=== PATIENT | female | born 1995 | race Caucasian/White ===

== ENCOUNTER 2024-08-03 15:53 | Emergency (ER) | payer SELFPAY ==
[2024-08-03 16:05] VITALS: BP 139/85; PULSE 120; RESP 16; TEMP 36.8; O2SAT 100
[2024-08-03 19:16] VITALS: BP 123/77; PULSE 94; RESP 18; TEMP 36.5; O2SAT 98
--- NOTE | 2024-08-03 19:56 | ED.EXTPRO ---
HPI - Extremity Problem General Chief complaint: Extremity Problem,Nontraumatic Stated complaint: LLE infection Time Seen by Provider: 08/03/24 19:15 History of Present Illness HPI Narrative: 28-year-old female presenting with concerns for infection of her leg. States that for the last couple of days she has had redness on the anterior aspect of her left he that has been increasingly painful and warm. Denies any drainage. Has been using Tylenol and ibuprofen with moderate relief. No fevers or chills. No chest pain or shortness of breath. Related Data Allergies Allergy/AdvReac Type Severity Reaction Status Date / Time No Known Allergies Allergy Verified 08/03/24 15:57 Review of Systems Review of Systems: All systems reviewed & are unremarkable except as noted in HPI and below Exam Narrative: GENERAL: Nontoxic, no acute distress, pleasant cooperative HEAD: Normocephalic, atraumatic. EYES: PERRLA and EOMI. ENT: Grossly unremarkable NECK: Supple. CHEST: No respiratory distress. HEART: Regular rate and rhythm EXTREMITIES: Normal range of motion. anterior left lower leg with area of erythema, warmth, tenderness; no extension to posterior aspect of the calf; neurovascularly intact SKIN: Warm, dry, as above. NEURO: No focal deficits. Alert and oriented x3. PSYCH: Normal mood and affect. Course Vital Signs Vital signs: Vital Signs Temperature 98.2 F 08/03/24 16:05 Pulse Rate 120 H 08/03/24 16:05 Respiratory Rate 16 08/03/24 16:05 Blood Pressure 139/85 08/03/24 16:05 Pulse Oximetry 100 08/03/24 16:05 Temperature 97.7 F 08/03/24 19:16 Pulse Rate 94 08/03/24 19:16 Respiratory Rate 18 08/03/24 19:16 Blood Pressure 123/77 08/03/24 19:16 Pulse Oximetry 98 08/03/24 19:16 MDM - Extremity (Nontraumatic) MDM Narrative Medical decision making narrative: 28-year-old female presenting with concerns for a left leg infection. Vitals are stable. Exam remarkable for the above. Her exam is consistent with cellulitis. There is no evidence of abscess. I do not suspect a DVT at this time given the focality of the erythema and tenderness and warmth. Will start her on Keflex, advised Tylenol and ibuprofen for continued pain control. Recommend close PCP follow-up. Appropriate return precautions given. Discharged in stable condition. Differential Diagnosis Differential diagnosis: Likely cellulitis and other (abscess, leg pain) Medical Records Attestation: I reviewed the patient's medical records. Critical Care Time Critical Care Time Critical Care Time: No Discharge Plan Discharge Clinical Impression: Cellulitis Patient Disposition: Home, Self-Care Condition: Stable Instructions: Antibiotic Form, Cellulitis (ED) Additional Instructions: We are treating you for a skin infection involving your left lower leg. Please complete the antibiotics as prescribed. Continue using Tylenol and ibuprofen for pain control. Follow-up closely with PCP. If your symptoms worsen or other concerning symptoms arise, please return to the ER. Prescriptions: New cephalexin 500 mg capsule 500 mg PO Q6H 7 Days Qty: 28 0RF Follow-up/Referrals: Pepe Acevedo MD [Physician] -
[2024-08-03] MEDS: CEPHALEXIN 500 MG CAPSULE PO (20:09)
[2024-08-03] MEDS: KETOROLAC 30 MG/ML VIAL (*BKC) IM (20:09)
== END 2024-08-03 20:15 | disposition home or self-care (01) ==
PROVIDERS: Emergency Provider Emergency Medicine
DX: L03.116 Cellulitis of left lower limb (principal)
CPT/HCPCS: 96372; 99283; A9270; J1885